=== PATIENT | male | born 1940 | race Hispanic/Latino ===

== ENCOUNTER 2017-07-05 13:54 | Outpatient (RCR) | payer MEDICARE ==
[~2017-07-05 13:54] MED LIST: CALCITRIOL0.25 MCG PO; CENTRUM SILVER1 EAC3 PO; LEVOTHYROXINE100 MC1 PO; MYCOPHENOLATE250 MG PO; MYRBETRIQ25 MG PO; PATADAY2.5 ML OU; PREDNISONE5 MG PO; PROGRAF1 MG PO
== END 2017-07-17 ==
LOC: OT 13:54
PROVIDERS: ATTEND Specialist
DX: S62.302D Unspecified fracture of third metacarpal bone, right hand, subsequent encounter for fracture with routine healing (principal); S62.304D Unspecified fracture of fourth metacarpal bone, right hand, subsequent encounter for fracture with routine healing; M79.642 Pain in left hand; M25.642 Stiffness of left hand, not elsewhere classified; R53.1 Weakness
CPT/HCPCS: 97022 ×2; 97110 ×2; 97165; G8987; G8988

== ENCOUNTER 2017-07-21 10:01 | Outpatient (RCR) | payer MEDICARE | END 2017-08-16 | LOC: OT 10:01 | PROVIDERS: ATTEND Specialist | DX: S62.395A Other fracture of fourth metacarpal bone, left hand, initial encounter for closed fracture (principal); S62.393A Other fracture of third metacarpal bone, left hand, initial encounter for closed fracture; M24.642 Ankylosis, left hand | CPT/HCPCS: 97139 ==

== ENCOUNTER → 2020-12-18 | Day surgery (SDC) | payer MEDICARE ==
[~2020-12-18] MED LIST changes: +BUPIVACAINE 0.25% 30ML SDV ONE; +CLINDAMYCIN 600MG / 50ML 50 ML IV ONE; +FARXIGA5 MG PO; +HYDROGEN PEROXIDE 120 ML BTL ONE; +LEVOFLOXACIN 500MG/D5W 100ML 100 ML IV ONE; +NEOSTIGMINE 1 MG/ML 10ML VIAL ONE
[2020-12-18 14:03] LABS: BASOPHILS % 0.4 % (0.0-1.0); EOSINOPHILS # (AUTO) 0.2 (0.0-0.4); EOSINOPHILS % 2.7 % (0.0-6.0); HEMATOCRIT 44.7 % (38.2-49.6); HEMOGLOBIN 14.5 g/dL (14.0-18.0); LYMPHOCYTES # (AUTO) 1.5 (1.0-3.2); LYMPHOCYTES % 19.2 % (18.0-39.1); MEAN CORPUSCULAR HGB CONC 32.4 g/dL (31-35); MEAN CORPUSCULAR VOLUME 95.7 fL (81-99); MONOCYTES # (AUTO) 0.7 (0.2-0.8); MONOCYTES % 8.7 % (4.4-11.3); NEUTROPHILS # (AUTO) 5.3 (2.1-6.9); NEUTROPHILS % 68.7 % (38.7-80.0); PLATELET COUNT 171 x10e3/uL (140-360); RED BLOOD COUNT 4.67 x10e6/uL (4.3-5.7); RED CELL DISTRIBUTION WIDTH 13.4 % (11.7-14.4)
[2020-12-18 14:23] LABS: ANION GAP 16.8 mmol/L (8-16); CALCIUM 9.5 mg/dL (8.4-10.2); CREATININE, SERUM 1.35 mg/dL (0.72-1.25); POTASSIUM 3.8 mmol/L (3.5-5.1)
[2020-12-18 17:00] VITALS: BP 130/80
== END | disposition home or self-care (01) ==
LOC: OR 13:25
PROVIDERS: ATTEND Surgery
DX: S68.121A Partial traumatic metacarpophalangeal amputation of left index finger, initial encounter (principal); I10 Essential (primary) hypertension; E03.9 Hypothyroidism, unspecified; W23.0XXA Caught, crushed, jammed, or pinched between moving objects, initial encounter; Z88.0 Allergy status to penicillin; Z20.822 Contact with and (suspected) exposure to COVID-19; Z94.0 Kidney transplant status; Z87.891 Personal history of nicotine dependence
CPT/HCPCS: 26952; 36415; 80048; 82948; 85025; 93005; J1956; J2710; U0002

== ENCOUNTER → 2021-11-25 | Outpatient (CLI) | payer MEDICARE ==
[~2021-11-25] MED LIST changes: -BUPIVACAINE 0.25% 30ML SDV ONE; -CLINDAMYCIN 600MG / 50ML 50 ML IV ONE; -HYDROGEN PEROXIDE 120 ML BTL ONE; -LEVOFLOXACIN 500MG/D5W 100ML 100 ML IV ONE; -NEOSTIGMINE 1 MG/ML 10ML VIAL ONE
== END ==
LOC: DX 08:50
PROVIDERS: ATTEND Family Medicine
DX: R05.3 Chronic cough (principal)
CPT/HCPCS: 0223U; 36415; 74246

== ENCOUNTER → 2021-11-27 | Outpatient (CLI) | payer MEDICARE | LOC: RAD 09:07 | PROVIDERS: ATTEND Family Medicine | DX: A15.9 Respiratory tuberculosis unspecified (principal) | CPT/HCPCS: 71046 ==

== ENCOUNTER → 2021-12-04 | Outpatient (CLI) | payer MEDICARE | LOC: RAD 09:35 | PROVIDERS: ATTEND Family Medicine | DX: R60.9 Edema, unspecified (principal) | CPT/HCPCS: 93971 ==